=== PATIENT | female | born 1995 | race African-American/Black ===

== ENCOUNTER 2019-12-25 20:21 | Emergency (ER) | payer BC, OTHER ==
[2019-12-25 21:53] VITALS: BP 111/73; PULSE 95; TEMP 98.4; BMI 42.9
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
== END 2019-12-25 23:05 | disposition home or self-care (01) ==
LOC: JER 20:21
DX: O26.892 Other specified pregnancy related conditions, second trimester (principal); R10.32 Left lower quadrant pain; Z3A.18 18 weeks gestation of pregnancy
CPT/HCPCS: 76815-TC; 99283-25

== ENCOUNTER 2020-05-30 20:50 | Inpatient (IN) | payer BC ==
[2020-05-30 22:47] VITALS: BMI 41.9
--- NOTE | 2020-05-30 23:02 | PD.OB.PROG ---
Past Medical History - Primary Care Physician PCP:: Evelyne Roberts Documenting Provider Type: Laborist - Admission Chief Complaint: induction History of Present Illness: primip postdates History Source: Patient, Medical Record Limitations to Obtaining History: No Limitations - Nursing Documentation Maternal Triage Index: Maternal Triage Index ( Priority 5, Requesting MFTI) Nursing Documentation Reviewed: Yes - Past Medical History QUALITY AUDITOR: Denies/None Cardio/Vascular: Denies/None Pulmonary: Denies/None Gastrointestinal: Denies/None Hepatobiliary: Denies/None Renal/: Denies/None ...: 1 ...Para: 0 ...Term: 0 ...: 0 ...Spon : 0 ...Induced : 0 ...Living Children: 0 ...Multiple Gestation: 0 ...LMP: 08/13/19 ... Weeks Gestation by Dates: 40.1 ...EDC by Dates: 05/29/20 Heme/Onc: Denies/None Infectious Disease: Denies/None Psych: Denies/None Musculoskeletal: Denies/None Rheumatology: Denies/None ENT: Denies/None Endocrine: Denies/None Dermatology: Denies/None - Past Surgical History Past Surgical History: Yes: None - Smoking History Smoking history: Never smoked Have you smoked in the past 12 months: No - Alcohol/Substance Use Hx Alcohol Use: No Review of Systems - Review of Systems Constitutional: reports: No Symptoms Eyes: reports: No Symptoms HENT: reports: No Symptoms Neck: reports: No Symptoms Cardiovascular: reports: No Symptoms Respiratory: reports: No Symptoms Gastrointestinal: reports: No Symptoms Genitourinary: reports: No Symptoms Breasts: reports: No Symptoms Reported Musculoskeletal: reports: No Symptoms Integumentary: reports: No Symptoms Neurological: reports: No Symptoms Endocrine: reports: No Symptoms Hematology/Lymphatic: reports: No Symptoms Psychiatric: reports: No Symptoms Physical Exam - Obstetrical Vital Signs: Vital Signs Temperature 97.9 F 05/30/20 22:00 Pulse Rate 89 05/30/20 21:50 Respiratory Rate 18 05/30/20 21:50 Blood Pressure 136/84 05/30/20 21:50 O2 Sat by Pulse Oximetry (%) Constitutional: Yes: Well Nourished, No Distress, Calm Eyes: Yes: WNL, Conjunctiva Clear, EOM Intact HENT: Yes: WNL, Atraumatic, Normocephalic Neck: Yes: WNL, Supple, Trachea Midline Cardiovascular: Yes: WNL, Regular Rate and Rhythm Lungs: Clear to auscultation Breast(s): Yes: WNL - Abdominal Exam/OB Fundal Height: 40 Number of Fetuses: Single Presentation: Vertex Contractions: No Heart Rate (range): 135 Heart Rate Location: [facility] Category: I Accelerations: Uniform Decelerations: None - Vaginal Exam/OB Vaginal Exam Deferred: No Dilatation (cm): 1-2 Effacement (%): 50 Amniotic Membrane Status: Intact Presentation: Vertex/Position Station: -2 - Physical Exam Musculoskeletal: Yes: WNL Extremities: Yes: WNL Integumentary: Yes: WNL ...Motor Strength: WNL Psychiatric: Yes: WNL Problem List - Problems (1) Post-dates Code(s): O48.0 - POST-TERM Assessment/Plan Cervidil placed. Prognosis for vaginal delivery: good. Explained to pt.
[2020-05-30] MEDS ORDERED: DINOPROSTONE 10 MG VAGINAL SUPPOSITORY VG ONE (23:36)
[2020-05-30] MEDS ORDERED: ELECTROLYTE-148 SOLN 1,000 ML IV SCH (23:45)
--- NOTE | 2020-05-31 00:50 | HP ---
Past Medical History - Primary Care Physician PCP:: Evelyne Roberts - Admission Chief Complaint: gestational hypertension History of Present Illness: 25 yo EDC 05/29/2020 EGA 40.1 weeks admitted for induction due to gestational HTN no ROM No PATEL no Bleeding no pain History Source: Patient Limitations to Obtaining History: No Limitations - Past Medical History ...: 1 ...Para: 0 ...Term: 0 ...: 0 ...Spon : 0 ...Induced : 0 ...Living Children: 0 ...Multiple Gestation: 0 ...LMP: 08/13/19 ... Weeks Gestation by Dates: 40.1 ...EDC by Dates: 05/29/20 - Past Surgical History Past Surgical History: Yes: None Hx Myomectomy: No Hx Transabdominal Cerclage: No - Smoking History Smoking history: Never smoked Have you smoked in the past 12 months: No - Alcohol/Substance Use Hx Alcohol Use: No - Social History Usual Living Arrangement: Yes: With Spouse Do you think of yourself as: Straight/Heterosexual History of Recent Travel: Yes Home Medications - Allergies Allergies/Adverse Reactions: Allergies Allergy/AdvReac Type Severity Reaction Status Date / Time No Known Allergies Allergy Verified 12/25/19 21:50 - Home Medications Home Medications: Ambulatory Orders Ibuprofen [Motrin -] 600 mg PO QID #28 tablet 06/03/20 Review of Systems - Review of Systems Constitutional: reports: No Symptoms Eyes: reports: No Symptoms HENT: reports: No Symptoms Neck: reports: No Symptoms Cardiovascular: reports: No Symptoms Respiratory: reports: No Symptoms Gastrointestinal: reports: No Symptoms Genitourinary: reports: No Symptoms Breasts: reports: No Symptoms Reported Musculoskeletal: reports: No Symptoms Integumentary: reports: No Symptoms Neurological: reports: No Symptoms Endocrine: reports: No Symptoms Hematology/Lymphatic: reports: No Symptoms Psychiatric: reports: No Symptoms Physical Exam - Maternity Vital Signs: Vital Signs Temperature 97.8 F 05/30/20 23:00 Pulse Rate 89 05/30/20 21:50 Respiratory Rate 18 05/30/20 21:50 Blood Pressure 136/84 05/30/20 21:50 O2 Sat by Pulse Oximetry (%) Constitutional: Yes: Well Nourished, No Distress Cardiovascular: Yes: WNL Lungs: Clear to auscultation Breast(s): Yes: WNL - Abdominal Exam/OB Fundal Height: 40 Number of Fetuses: Single Presentation: Vertex Contractions: Yes Category: I - Vaginal Exam/OB Dilatation (cm): 3 cm Effacement (%): 80 Amniotic Membrane Status: Intact Presentation: Vertex/Position - Physical Exam Musculoskeletal: Yes: WNL Extremities: Yes: WNL Edema: No Integumentary: Yes: WNL Psychiatric: Yes: WNL, Alert, Oriented Hemorrhage Risk Assessment - Risk Factors Risk Score: 0 Risk Level: Low Risk Problem List - Problems (1) Obesity affecting in third trimester Problems reviewed: Yes Code(s): O99.213 - OBESITY COMPLICATING , THIRD TRIMESTER (2) Post-term , 40-42 weeks of gestation Problems reviewed: Yes Code(s): O48.0 - POST-TERM (3) Gestational hypertension Problems reviewed: Yes Code(s): O13.9 - GESTATIONAL HTN W/O SIGNIFICANT PROTEINURIA, UNSP TRIMESTER Qualifiers: Trimester: third trimester Qualified Code(s): O13.3 - Gestational [-induced] hypertension without significant proteinuria, third trimester Assessment/Plan postdates Cat 1 gestational hypertension Plan Cervidl/pitocin continuous monitoring
[2020-05-31] MEDS: ELECTROLYTE-148 SOLN 1,000 ML IV SCH ×2 (01:00→19:00)
[2020-05-31 01:59] LABS: BASO % 0.4 % (0-2.0); EOS % 0.9 % (0-4.5); HEMATOCRIT 36.4 % (32.4-45.2); HEMOGLOBIN 12.5 GM/dL (10.7-15.3); MCH 30.8 pg (25.7-33.7); MCHC 34.3 g/dl (32.0-36.0); MEAN PLT VOLUME 9.6 fl (7.5-11.1); MONO % 6.2 % (3.8-10.2); NEUT % 71.5 % (42.8-82.8); PLATELET COUNT 201 K/MM3 (134-434); RBC 4.04 M/mm3 (3.60-5.2); WHITE BLOOD COUNT 8.7 K/mm3 (4.0-10.0)
[2020-05-31 02:16] LABS: INR 0.87 (0.83-1.09); PROTHROMBIN TIME (PATIENT) 10.3 SEC (9.7-13.0)
[2020-05-31 02:19] LABS: ACTIVATED PTT 26.3 SECONDS (25.2-36.5)
[2020-05-31 02:21] LABS: CALCIUM 8.8 mg/dL (8.5-10.1); CREATININE 0.6 mg/dL (0.55-1.3); POTASSIUM 3.9 mmol/L (3.5-5.1)
[2020-05-31] MEDS ORDERED: PROMETHAZINE HCL 25 MG/1 ML VIAL IVPB ONE (04:10)
[2020-05-31] MEDS ORDERED: BUTORPHANOL TARTRATE 2 MG/ML VIAL IVPB ONE (04:10)
[2020-05-31] MEDS ORDERED: PROMETHAZINE HCL 25 MG/1 ML VIAL ONE (04:14)
[2020-05-31] MEDS ORDERED: BUTORPHANOL TARTRATE 2 MG/ML VIAL ONE (04:14)
--- NOTE | 2020-05-31 09:10 | PN ---
Ante-Partal Exam - Subjective Subjective: Pt doing well Vital Signs: Vital Signs Temperature 98.5 F 05/31/20 06:00 Pulse Rate 89 05/30/20 21:50 Respiratory Rate 18 05/30/20 21:50 Blood Pressure 129/82 05/31/20 06:30 O2 Sat by Pulse Oximetry (%) Bleeding: No Headache: No Visual changes: No Right upper quadrant pain: No - Exam during Labor Variability: Moderate Category: I Monitor Decelerations: None Exam: Vaginal Dilatation (cm): 2 Amniotic Membrane Status: Intact Presentation: Vertex - Intrapartum Hemorrhage Risk Risk Score: 0 Risk Level: Low Risk - Assessment/Plan Assessment/Plan: gestational htn Cat 1 induction Plan PIt aug
--- NOTE | 2020-05-31 09:11 | LDN ---
Oxytocin Pre-Use Checklist Date and Time completed: 05/31/20 0999 Physician order on chart: Yes Current history and physical on chart: Yes Indication for induction is documented: Yes record on chart: Yes Pelvis is documented by physician to be clinically adequate: Yes Estimated weight within past week (clinical or sono): Less than 4500 grams in a non-diabetic woman Gestational age is documented: Yes Consent signed: Yes Physician with privileges: is aware of the induction, is readily available, is documented in the medical record Status of the cervix is assessed and documented: Yes Presentation is assessed and documented: Yes Assessment completed and includes: A minimum of 30 minutes of monitoring is required prior to start, At least 2 accelerations (15bpm x 15sec) in 30 minutes are present, Adequate variability
[2020-05-31] MEDS ORDERED: BUTORPHANOL TARTRATE 1 MG/ML VIAL IVPB PRN (09:25)
[2020-05-31] MEDS ORDERED: OXYTOCIN 30 UNITS in 0.9% NS 30 UNIT/500 ML INFUS.BAG IVPB ONE (09:51)
[2020-05-31] MEDS ORDERED: AMPICILLIN SODIUM 2 GM VIAL ONE (09:51)
[2020-05-31] MEDS ORDERED: AMPICILLIN - 2 GM in SODIUM CHLORIDE 100 ML IVPB ONE (10:00)
[2020-05-31] MEDS: OXYTOCIN 30 UNITS in 0.9% NS 30 UNIT/500 ML INFUS.BAG IVPB SCH (10:00)
[2020-05-31] MEDS: AMPICILLIN - 1 GM in SODIUM CHLORIDE 100 ML IVPB SCH ×3 (14:15→22:10)
[2020-05-31] MEDS ORDERED: AMPICILLIN SODIUM 1 GM VIAL ONE ×3 (14:24→22:07)
--- NOTE | 2020-05-31 19:17 | PN ---
Ante-Partal Exam - Subjective Subjective: Pt doing well Vital Signs: Vital Signs Temperature 98.5 F 05/31/20 14:00 Pulse Rate 78 05/31/20 14:00 Respiratory Rate 20 05/31/20 14:00 Blood Pressure 144/89 05/31/20 14:00 O2 Sat by Pulse Oximetry (%) 100 05/31/20 09:00 Bleeding: No Headache: No Visual changes: No Right upper quadrant pain: No - Contractions Contractions: Yes Monitor Mode: External - Exam during Labor Variability: Moderate Category: I Monitor Decelerations: None Exam: Vaginal Dilatation (cm): 3-4 Effacement (%): 80 Amniotic Membrane Status: Ruptured Amniotic Fluid: Clear Presentation: Vertex Station: -1 - Intrapartum Hemorrhage Risk Medium Risk Factors: None Risk Score: 0 Risk Level: Low Risk - Assessment/Plan Assessment/Plan: Cat 1 obesity pt on pitocn post term gestational HTN Plan stadol/epidural
[2020-05-31] MEDS ORDERED: LIDOCAINE HCL 1% PRESERVATIVE FREE - 30ML VIAL ONE (20:48)
[2020-05-31] MEDS ORDERED: OXYTOCIN 20 UNITS in 0.9% NS 20 UNIT/1,000 ML INFUS.BAG IV ONE (20:48)
[2020-05-31] MEDS ORDERED: SODIUM CHLORIDE 100 ML IVPB ONE (22:07)
[2020-05-31] MEDS ORDERED: PCA PUMP NR ONE (22:21)
[2020-05-31] MEDS ORDERED: FENTANYL/BUPIVACAINE/NS/PF - PCEA - 50 ML DISP.SYRIN EP ONE (22:21)
[2020-05-31] MEDS ORDERED: NALOXONE HCL 0.4 MG/ML VIAL IVPUSH PRN (22:35)
[2020-05-31] MEDS ORDERED: LIDO 2%/EPI 1:200000 PRESRVFRE (20 ML SDVIAL) ONE (22:37)
[2020-05-31] MEDS: FENTANYL/BUPIVACAINE/NS/PF - PCEA - 50 ML DISP.SYRIN EP SCH (22:52)
[2020-06-01] MEDS ORDERED: LABETALOL HCL 200 MG TABLET (FP) PO ONE (00:10)
[2020-06-01] MEDS ORDERED: LABETALOL HCL 200 MG TABLET (FP) ONE (00:20)
[2020-06-01] MEDS ORDERED: AMPICILLIN SODIUM 1 GM VIAL ONE (02:01)
[2020-06-01] MEDS ORDERED: SODIUM CHLORIDE 100 ML IVPB ONE (02:01)
[2020-06-01] MEDS: AMPICILLIN - 1 GM in SODIUM CHLORIDE 100 ML IVPB SCH ×3 (02:02→09:46)
[2020-06-01] MEDS ORDERED: FENTANYL/BUPIVACAINE/NS/PF - PCEA - 50 ML DISP.SYRIN EP ONE (02:13)
--- NOTE | 2020-06-01 04:28 | PN ---
Ante-Partal Exam - Subjective Vital Signs: Vital Signs Temperature 98.6 F 06/01/20 04:00 Pulse Rate 89 06/01/20 04:00 Respiratory Rate 18 06/01/20 04:00 Blood Pressure 138/92 06/01/20 04:00 O2 Sat by Pulse Oximetry (%) 99 06/01/20 04:00 - Contractions Contractions: Yes Monitor Mode: External - Exam during Labor Variability: Moderate Heart Rate Location: [facility] Category: I Monitor Accelerations: Present Monitor Decelerations: None Exam: Vaginal Dilatation (cm): 9cm Amniotic Membrane Status: Ruptured Amniotic Fluid: Clear Presentation: Vertex Station: 0 - Intrapartum Hemorrhage Risk Risk Score: 0 Risk Level: Low Risk - Assessment/Plan Assessment/Plan: obesity pitocin aug Cat 1 ant lip Plan continue pitocin anticipate vaginal delivery DC epidural
[2020-06-01] MEDS ORDERED: oxyCODONE HCL 5 MG TABLET PO PRN (06:28)
[2020-06-01] MEDS ORDERED: BENZOCAINE 28 GM HEMORRHOIDAL OINTMENT PR PRN (06:28)
[2020-06-01] MEDS ORDERED: BENZOCAINE 20% 57 GM BOTTLE TP PRN (06:28)
[2020-06-01] MEDS ORDERED: WITCH HAZEL 50% (TUCKS) 40 PAD/JAR PAD TP PRN (06:28)
[2020-06-01] MEDS ORDERED: BISACODYL 10 MG SUPP.RECT PR PRN (06:28)
[2020-06-01] MEDS ORDERED: METHYLERGONOVINE MALEATE 0.2 MG/1 ML AMP IM PRN (06:28)
--- NOTE | 2020-06-01 06:28 | PN ---
Delivery - Delivery Vaginal Delivery: No Problems, Spontaneous (nuchal x 1) Type of Anesthesia: Local, Epidural Episiotomy/Laceration: Right Mediolateral EBL (cc): 300 Delivery, Single - Stages of Labor Placenta: Yes: Spontaneous - Condition of Infant National Sales Consultant/Spring Inspector Present: No Infant Gender: Male Position: OA - Feeding Plan Initial Plan: Elected not to breastfeed exclusively throughout hospitalization
[2020-06-01] MEDS ORDERED: OXYTOCIN 20 UNITS in 0.9% NS 20 UNIT/1,000 ML INFUS.BAG IV SCH (06:45)
[2020-06-01 08:51] LABS: CORD BASE EXCESS -8.4 mmol/L (0-2); CORD HCO3 17.9 mmHg (20-29); CORD PCO2 39.7 mmHg (30-78); CORD pH 7.271 (7.14-7.44)
[2020-06-01] MEDS: OXYTOCIN 30 UNITS in 0.9% NS 30 UNIT/500 ML INFUS.BAG IVPB SCH (09:45)
[2020-06-01] MEDS: ACETAMINOPHEN 325 MG TABLET (FP) PO PRN ×2 (14:48→22:38)
[2020-06-01] MEDS: IBUPROFEN 600 MG TABLET (FP) PO PRN ×2 (14:49→22:39)
--- NOTE | 2020-06-02 06:45 | PN ---
Post Progress Note - Subjective Subjective: 25 yo Para1 status post vaginal delivery, seen and evaluated. Doing well. Post Day: 1 Type of Delivery: Vital Signs: Vital Signs Temperature 97.6 F 06/02/20 06:00 Pulse Rate 70 06/02/20 06:00 Respiratory Rate 20 06/02/20 06:00 Blood Pressure 126/73 06/02/20 06:00 O2 Sat by Pulse Oximetry (%) 100 06/01/20 06:00 Breast Exam: Yes: Soft Uterus: Yes: Fundus Firm Abdomen/GI: Yes: Abdomen soft, Tolerating PO Lochia: Yes: Rubra Lochia, amount: Moderate Extremities: Yes: Calves non-tender Perineum: Yes: Episiotomy (healing) Activity: Ambulating - Labs Labs: CBC WBC 8.7 K/mm3 (4.0-10.0) 05/31/20 01:15 RBC 4.04 M/mm3 (3.60-5.2) 05/31/20 01:15 Hgb 12.5 GM/dL (10.7-15.3) 05/31/20 01:15 Hct 36.4 % (32.4-45.2) 05/31/20 01:15 MCV 90.0 fl (80-96) 05/31/20 01:15 MCH 30.8 pg (25.7-33.7) 05/31/20 01:15 MCHC 34.3 g/dl (32.0-36.0) 05/31/20 01:15 RDW 15.0 % (11.6-15.6) D 05/31/20 01:15 Plt Count 201 K/MM3 (134-434) D 05/31/20 01:15 MPV 9.6 fl (7.5-11.1) D 05/31/20 01:15 Absolute Neuts (auto) 6.2 K/mm3 (1.5-8.0) 05/31/20 01:15 Neutrophils % 71.5 % (42.8-82.8) 05/31/20 01:15 Lymphocytes % 21.0 % (8-40) D 05/31/20 01:15 Monocytes % 6.2 % (3.8-10.2) 05/31/20 01:15 Eosinophils % 0.9 % (0-4.5) 05/31/20 01:15 Basophils % 0.4 % (0-2.0) 05/31/20 01:15 Nucleated RBC % 0 % (0-0) 05/31/20 01:15 Problem List - Problems (1) Status post normal vaginal delivery Problems reviewed: Yes Code(s): [id number] - Assessment/Plan Status post vaginal delivery Stable Continue routine care
[2020-06-02] MEDS: FENTANYL/BUPIVACAINE/NS/PF - PCEA - 50 ML DISP.SYRIN EP SCH (07:29)
[2020-06-02 10:07] LABS: BASO % 0.3 % (0-2.0); EOS % 0.9 % (0-4.5); HEMATOCRIT 32.9 % (32.4-45.2); HEMOGLOBIN 11.3 GM/dL (10.7-15.3); LYMPH % 18.6 % (8-40); MCH 31.2 pg (25.7-33.7); MCHC 34.4 g/dl (32.0-36.0); MEAN CELL VOLUME 90.6 fl (80-96); MEAN PLT VOLUME 9.2 fl (7.5-11.1); MONO % 4.9 % (3.8-10.2); NEUT % 75.3 % (42.8-82.8); PLATELET COUNT 169 K/MM3 (134-434); RBC 3.63 M/mm3 (3.60-5.2); RDW 15.1 % (11.6-15.6); WHITE BLOOD COUNT 9.1 K/mm3 (4.0-10.0)
[2020-06-02] MEDS: IBUPROFEN 600 MG TABLET (FP) PO PRN ×2 (12:07→19:46)
[2020-06-02] MEDS: ACETAMINOPHEN 325 MG TABLET (FP) PO PRN ×2 (12:08→19:45)
[2020-06-03] MEDS: ELECTROLYTE-148 SOLN 1,000 ML IV SCH (00:04)
[2020-06-03] MEDS: IBUPROFEN 600 MG TABLET (FP) PO PRN ×2 (00:18→09:48)
[2020-06-03] MEDS: ACETAMINOPHEN 325 MG TABLET (FP) PO PRN ×2 (00:18→09:48)
[2020-06-03] MEDS: FENTANYL/BUPIVACAINE/NS/PF - PCEA - 50 ML DISP.SYRIN EP SCH (03:13)
--- NOTE | 2020-06-03 08:14 | DS ---
Physical Exam-JAVA CONSULTANT Vital Signs: Vital Signs Temperature 98.6 F 06/02/20 22:00 Pulse Rate 71 06/02/20 22:00 Respiratory Rate 18 06/02/20 22:00 Blood Pressure 117/60 06/02/20 22:00 O2 Sat by Pulse Oximetry (%) 100 06/02/20 10:00 Constitutional: Yes: Well Nourished, No Distress Neck: Yes: WNL Cardiovascular: Yes: WNL Gastrointestinal: Yes: WNL, Soft ....Post : Yes: Uterus firm, Uterus non-tender Labs: CBC, BMP 06/02/20 09:31 05/31/20 01:15 Delivery - Delivery Vaginal Delivery: No Problems, Spontaneous (nuchal x 1) Type of Anesthesia: Local, Epidural Episiotomy/Laceration: Right Mediolateral EBL (cc): 300 Delivery, Single - Stages of Labor Date 1st Stage Initiatied: 05/31/20 Time 1st Stage Initiated: 07:00 Date 2nd Stage Initiated: 06/01/20 Time 2nd Stage Initiated: 04:37 Date of Delivery: 06/01/20 Time of Delivery: 05:55 Time Placenta Delivered: 06:00 Placenta: Yes: Spontaneous - Condition of Reptile Farmer/Shop Fitter Present: No Infant Gender: Male Weight: 7 lb 13 oz Position: OA Total Hours ROM (Hrs/Mins): 10/50 - 1 Minute Total Score: 9 5 Minutes Total Score: 9 - Feeding Plan Initial Plan: Elected not to breastfeed exclusively throughout hospitalization Discharge Summary Problems reviewed: Yes Reason For Visit: INDUCTION OF LABOR Current Active Problems Gestational hypertension (Acute) Obesity affecting in third trimester (Acute) Post-dates (Acute) Post-term , 40-42 weeks of gestation (Acute) Status post normal vaginal delivery (Acute) Procedures: Principal: normal vaginal delivery Hospital Course: unremarkable Condition: Good - Instructions Diet, Activity, Other Instructions: Physical activity Resume your normal everyday activity as tolerated no heavy lifting or exercise until seen by your surgeon. You may walk unlimited cris of and climb stairs. You may resume driving the car when you feel safe and comfortable behind the wheel. No sexual activity as instructed. Wound care If you have a bandage, leave it on, and keep dry for 48-72 hours. After that time discard the outer bandage. If they are tapes on the skin under the out of bandage leave them in place. They will peel off in the next 7 to 10 days. Do Not Peel them off. You may shower the day after surgery. If there are tapes present on the skin, you may shower over them. Diet There are no dietary restrictions. Eat healthy, high-fiber foods. Drink 6 to 8 glasses of liquid each day. This will assist in keeping your bowels are regular. Pain management You may take Tylenol or acetaminophen or Ibuprofen (for example, Motrin, Advil etc.) from my pain prescription medication is ordered should be taken as prescribed for moderate to severe pain. Call MD for any of the following: Severe pain not relieved by medication Fever of 101 or higher Excessive bleeding or drainage on dressing Inability to urinate Referrals: Evelyne Roberts MD [Staff Physician] - Disposition: HOME
[2020-06-03 09:54] VITALS: BP 131/87; PULSE 82; TEMP 97.7
== END 2020-06-03 13:40 | disposition home or self-care (01) | DRG 807 ==
LOC: JLDR 20:50 → J3W 06-01 09:00
PROVIDERS: ADMIT Obstetrics & Gynecology; ATTEND Obstetrics & Gynecology
PROC: 3E0P7VZ Introduction of Hormone into Female Reproductive, Via Natural or Artificial Opening (ICD-10-PCS; 2020-05-30)
PROC: 10E0XZZ Delivery of Products of Conception, External Approach (ICD-10-PCS; principal; 2020-06-01)
DX: O48.0 Post-term pregnancy (principal); Z37.0 Single live birth; O13.3 Gestational [pregnancy-induced] hypertension without significant proteinuria, third trimester; O99.824 Streptococcus B carrier state complicating childbirth; O69.81X0 Labor and delivery complicated by cord around neck, without compression, not applicable or unspecified; O42.02 Full-term premature rupture of membranes, onset of labor within 24 hours of rupture; O99.214 Obesity complicating childbirth; E66.01 Morbid (severe) obesity due to excess calories; O77.0 Labor and delivery complicated by meconium in amniotic fluid; Z3A.40 40 weeks gestation of pregnancy; O70.9 Perineal laceration during delivery, unspecified
CPT/HCPCS: 36415; 36600; 59409; 80048; 82803; 85025; 85610; 85730; 86780; 86850; 86900; 86901; 87389

== ENCOUNTER 2020-11-14 11:15 | Emergency (ER) | payer BC ==
[2020-11-14 11:24] VITALS: BP 126/71; PULSE 87; TEMP 98; BMI 35.9
[2020-11-14] MEDS ORDERED: ACETAMINOPHEN 500 MG TABLET (FP) PO ONE (13:05)
[2020-11-14] MEDS ORDERED: ACETAMINOPHEN 500 MG TABLET (FP) ONE (13:06)
[2020-11-14] MEDS ORDERED: KETOROLAC TROMETHAMINE 30 MG/1 ML VIAL IM ONE (14:00)
[2020-11-14] MEDS ORDERED: LIDOCAINE 5% TOPICAL PATCH TP ONE (14:00)
[2020-11-14] MEDS ORDERED: LIDOCAINE 5% TOPICAL PATCH ONE (14:04)
[2020-11-14] MEDS ORDERED: KETOROLAC TROMETHAMINE 30 MG/1 ML VIAL ONE (14:04)
[2020-11-14] MEDS ORDERED: LIDOCAINE PATCH REMOVAL MC ONE (22:00)
== END 2020-11-14 14:16 | disposition home or self-care (01) ==
LOC: JERFT 11:15
PROC: 3E023GC Introduction of Other Therapeutic Substance into Muscle, Percutaneous Approach (ICD-10-PCS; principal; 2020-11-14)
DX: M54.41 Lumbago with sciatica, right side (principal)
CPT/HCPCS: 72100-TC-FY; 84703; 99284-25

== ENCOUNTER 2022-04-02 09:03 | Emergency (ER) | payer BC, OTHER ==
[2022-04-02 09:40] VITALS: BP 113/67; PULSE 95; TEMP 97.2; BMI 45.2
[2022-04-02] MEDS ORDERED: ONDANSETRON *ODT* 4 MG TABLET SL ONE (10:03)
[2022-04-02] MEDS ORDERED: IBUPROFEN 600 MG TABLET (FP) PO ONE ×2 (10:04→10:19)
[2022-04-02] MEDS ORDERED: ONDANSETRON *ODT* 4 MG TABLET ONE (10:19)
== END 2022-04-02 10:49 | disposition home or self-care (01) ==
LOC: JER 09:03
DX: J11.1 Influenza due to unidentified influenza virus with other respiratory manifestations (principal)
CPT/HCPCS: 0241U-QW; 99283-25; Q0162